=== PATIENT | male | born 1990 | race American Indian/Alaskan Native ===

== ENCOUNTER 2023-03-28 09:23 | Emergency (ER) | payer OTHER ==
[~2023-03-28] VITALS: Ht 180.3 cm; Wt 143.8 kg
--- OUTSIDE RECORDS SUMMARY | ~2023-03-28 | XMS | Continuity of Care Document ---
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 | (no reaction) | (no severity) | | [facility] | | | + + + + + + Encounters No information. Functional Status No information. Immunizations No information. Medications + + + + | date | description | facility | + + + + | 2023-03-26 00:00 | Nirmatrelvir/Ritonavir | [facility] | + + + + Problems + + + + | date | description | facility | + + + + | 2023-03-26 00:00 | Infection due to severe | [facility] | | | acute respiratory syndrome | | | | coronavirus 2 (SARS-CoV-2) | | + + + + | 2023-03-26 17:48 | OTHER SPECIFIED DISORDERS | [facility] | | | OF NOSE AND NASAL SINUSES | | + + + + | 2023-03-26 17:48 | COVID-19 | [facility] | + + + + | 2023-03-26 17:48 | OTHER NONMEDICINAL | [facility] | | | SUBSTANCE ALLERGY STATUS | | + + + + Procedures No information. Results/Labs +--------+--------+ +---------+--------+---------+ | test | date | facility | value | unit | notes | +--------+--------+ +---------+--------+---------+ + + | Result panel 1 | + + + + + + + + + | | 2023-03-26 | [facility] | POSITIVE | (missing) | (missing) | | (unavailable | 19:30:07 [facility] | | | | + + + + + + + + + | Result panel 2 | + + + + + + + + + | | 2023-03-26 | [facility] | NEGATIVE | (missing) | (missing) | | (unavailable | 19:30:07 [facility] | | | | + + + + + + + + + | Result panel 3 | + + + + + + + + + | | 2023-03-26 | [facility] | NEGATIVE | (missing) | (missing) | | (unavailable | 19:30:07 [facility] | | | | + + + + + + + + + | Result panel 4 | + + + + + + + + + | | 2023-03-26 | [facility] | NEGATIVE | (missing) | (missing) | | (unavailable | 19:30:07 [facility] | | | | + + + + + + + Social History + + + + | date | description | facility | + + + + | 2023-03-26 00:00 | Unknown if ever smoked | [facility] | + + + + Vital Signs + + + +---------+ | date | measurement | value | units | + + + +---------+ | 2023-03-26 00:00 | BMI | 44.2 | kg/m2 | + + + +---------+ | 2023-03-26 00:00 | BP_diastolic | 96 | mmHg | + + + +---------+ | 2023-03-26 00:00 | BP_systolic | 147 | mmHg | + + + +---------+ | 2023-03-26 00:00 | heart_rate | 111 | /min | + + + +---------+ | 2023-03-26 00:00 | height_metric | 180.34 | cm | + + + +---------+ | 2023-03-26 00:00 | height_standard | 71 | in | + + + +---------+ | 2023-03-26 00:00 | o2_saturation | 98 | % | + + + +---------+ | 2023-03-26 00:00 | respiration_rate | 16 | /min | + + + +---------+ | 2023-03-26 00:00 | temperature_metric | 36.94 | C | | | | | | + + + +---------+ | 2023-03-26 00:00 | | 98.5 | F | | | temperature_standar | | | | | d | | | + + + +---------+ | 2023-03-26 00:00 | weight_metric | 143.79 | kg | + + + +---------+ | 2023-03-26 00:00 | weight_standard | 317 | lb | + + + +---------+"
--- OUTSIDE RECORDS SUMMARY | ~2023-03-28 | XMS | Continuity of Care Document ---
Demographics + + + | Address | [address] | | | [place] [address] | + + + | Preferred Language | Unknown | + + + | Marital Status | Never | + + + | Oriental Orthodox Affiliation | Unknown | + + + | Race | or | + + + | Ethnic Group | Not or | + + + Author + + + | Author | [facility] | + + + | Organization | [facility] | + + + | Address | [address] [place] [address] | | | [place] [address] | + + + | Phone | | + + + Care Team Providers + + + + | Care Roll On Man Name | Role | Phone | + [...] + | 2023-03-26 00:00 | Nirmatrelvir/Ritonavir | [facility] | + + + + Problems + + + + | date | description | facility | + + + + | 2023-03-26 00:00 | Infection due to severe | [facility] | | | acute respiratory syndrome [...] | Unknown if ever smoked | [facility] | + + + + Vital Signs [...]
[~2023-03-28 09:23] MED LIST: PAXLOVID 300-11 EACH PO
--- OUTSIDE RECORDS SUMMARY | 2023-03-28 09:31 | XMS ---
PreManage Notification: RENETTA VARMA Security Icer Air Conditioning Events No recent Security Events currently on file CRITERIA MET - [facility] - 2 Visits in 30 Days CARE PROVIDERS -Maddy- Dentist: Wine Sales Representative [facility] PHONE: [phone] Edna has no Care Guidelines for this patient. EShakir VISIT COUNT ([address] 2 [facility] TOTAL 2 NOTE: Visits indicate total known visits. ED/UCC VISIT TRACKING (12 MO.) 03/28/2023 09:[address] [facility] TYPE: Emergency COMPLAINT: - L SIDE PAIN, TOP LUNGS PAIN 03/26/2023 17:[address] [facility] TYPE: Emergency COMPLAINT: - COLD SYMPTOMS DIAGNOSES: - COVID-19 - Other nonmedicinal substance allergy status - Other specified disorders of nose and nasal sinuses INPATIENT VISIT TRACKING (12 MO.) No inpatient visits to display in this time frame [id number]
[2023-03-28 10:33] VITALS: BP 148/98
== END 2023-03-28 10:34 | disposition home or self-care (01) ==
LOC: ED 09:23
DX: U07.1 COVID-19 (principal); Z91.048 Other nonmedicinal substance allergy status
CPT/HCPCS: 71045; 99283-25

== ENCOUNTER 2024-03-22 07:26 | Emergency (ER) | payer OTHER ==
[~2024-03-22] VITALS: Ht 180.3 cm; Wt 135.9 kg
[2024-03-22 08:37] VITALS: BP 150/96
== END 2024-03-22 08:38 | disposition home or self-care (01) ==
LOC: ED 07:26
DX: J06.9 Acute upper respiratory infection, unspecified (principal); Z91.048 Other nonmedicinal substance allergy status
CPT/HCPCS: 87651; 99283; U0002

== ENCOUNTER 2024-07-27 15:46 | Emergency (ER) | payer OTHER ==
[~2024-07-27] VITALS: Ht 180.3 cm; Wt 134.3 kg
[2024-07-27] MEDS ORDERED: AMOX TR-K CLV1 EAC1 PO (19:14)
[2024-07-27] MEDS ORDERED: AMOXICILLIN/CLAVULANATE K 875 MG HOME.PACK PO ONE (19:15)
[2024-07-27] MEDS ORDERED: DIPHTH,PERTUSS(ACELL),TET VAC 0.5 ML SYRINGE IM ONE (19:15)
[2024-07-27 19:48] VITALS: BP 144/97
== END 2024-07-27 19:51 | disposition home or self-care (01) ==
LOC: ED 15:46
DX: S51.852A Open bite of left forearm, initial encounter (principal); Z91.09 Other allergy status, other than to drugs and biological substances; Z23 Encounter for immunization; W54.0XXA Bitten by dog, initial encounter
CPT/HCPCS: 90471; 90715; 99283-25

== ENCOUNTER 2024-09-07 04:44 | Emergency (ER) | payer OTHER ==
[~2024-09-07] VITALS: Ht 180.3 cm; Wt 134.3 kg
[~2024-09-07 04:44] MED LIST changes: +AMOX TR-K CLV1 EAC1 PO
[2024-09-07 04:56] LABS: EOSINOPHILS 3.3 % (0-6); HEMATOCRIT 43.8 % (35.0-50.0); HEMOGLOBIN 14.8 g/dL (12.0-18.0); LYMPHOCYTES 29.4 % (24-44); MCH 27.9 (27-36); MCHC 33.7 g/dl (30-36); MCV 82.7 fl (81-99); MONOCYTES 7.6 % (0-12); NEUTROPHILS 58.7 % (39-80); PLATELET COUNT 431 K/uL (140-440); RDW 15.8 (10.5-15.0)
[2024-09-07] MEDS ORDERED: LORazepam 2 MG/ML VIAL IV ONE (05:00)
[2024-09-07 05:06] LABS: PARTIAL THROMBOPLASTIN TIME 27.9 Sec (22.9-41.3)
[2024-09-07 05:07] LABS: INR 1.02 (0.80-1.30); PROTIME 13.3 Sec (11.2-14.2)
[2024-09-07 05:18] LABS: ALBUMIN 4.3 g/dL (3.4-5.0); ALBUMIN/GLOBULIN RATIO 1.08 (1.1-2.4); ANION GAP 17.4 (7-21); BILIRUBIN, TOTAL 0.5 mg/dL (0.2-1.0); BUN/CREATININE RATIO 22.1 (6.0-28.6); CALCIUM 9.2 mg/dL (8.5-10.1); CREATININE, SERUM 0.95 mg/dL (0.70-1.30); POTASSIUM 3.4 mmol/L (3.5-5.1); PROTEIN, TOTAL 8.3 g/dL (6.4-8.2)
[2024-09-07] MEDS ORDERED: CYCLOBENZAPRINE10 MG PO (06:25)
[2024-09-07] MEDS ORDERED: CYCLOBENZAPRINE HCL 10 MG HOME.PACK PO ONE (07:00)
[2024-09-07 07:09] VITALS: BP 141/97
--- NOTE | 2024-09-07 17:43 | EKG ---
[facility] [address] [facility] [address] [facility] [place], [place] [address] Signed Normal sinus rhythm Normal ECG No previous ECGs available Confirmed by Cassius Billingsley MD ([id number]) on 09/07/2024 5:43:26 PM Electronically Signed By: CASSIUS BILLINGSLEY MD 09/07/24 1743 PATIENT NAME: RENETTA VARMA Manish BRADY Electrocardiogram DATE OF : 86 PHYSICIAN: CASSIUS BILLINGSLEY MD REPORT #: [id number] REPORT IS CONFIDENTIAL AND NOT TO BE RELEASED WITHOUT AUTHORIZATION
== END 2024-09-07 07:14 | disposition home or self-care (01) ==
LOC: ED 04:44
PROVIDERS: Family Medicine
DX: R07.89 Other chest pain (principal); J45.909 Unspecified asthma, uncomplicated; Z91.048 Other nonmedicinal substance allergy status
CPT/HCPCS: 36415; 71045; 80053; 83735; 84484; 85025; 85610; 85730; 93005; 93010; 96374; 99285-25; J2060

== ENCOUNTER 2025-02-26 21:52 | Emergency (ER) | payer OTHER ==
[~2025-02-26] VITALS: Ht 180.3 cm; Wt 137.2 kg
[~2025-02-26 21:52] MED LIST changes: +CYCLOBENZAPRINE10 MG PO
[2025-02-26] MEDS ORDERED: FLUTICASONE PRO16 GM NAS (22:12)
[2025-02-26] MEDS ORDERED: TERBINAFINE HC250 MG PO (22:12)
[2025-02-26] MEDS ORDERED: LACTATED RINGER'S 1,000 ML IV ONE (22:30)
[2025-02-26 22:31] LABS: BASOPHILS 0.4 % (0.2-1.2); EOSINOPHILS 1.9 % (0.8-7.0); LYMPHOCYTES 9.9 % (21.8-53.1); MCH 27.4 PG (25.7-32.2); MCHC 32.9 g/dL (32.3-36.5); MCV 83.2 fL (79.0-92.2); MONOCYTES 6.0 % (5.3-12.2); NEUTROPHILS 81.4 % (34.0-67.9); RBC 5.37 M/uL (4.63-6.08)
[2025-02-26 22:41] LABS: ALT (SGPT) 36.0 U/L (14-59); AST (SGOT) 16.0 U/L (15-37); GLOMERULAR FILTRATION RATE,EST 116.0 mL/min (>60); PROTEIN, TOTAL 8.5 g/dL (6.4-8.2); UREA NITROGEN 22.0 mg/dL (7-18)
[2025-02-26 23:14] LABS: BLOOD/HGB, URINE NEGATIVE (Negative); KETONE, URINE NEGATIVE (Negative); LEUK ESTERASE, URINE NEGATIVE (negative); NITRITE, URINE NEGATIVE (negative)
[2025-02-26] MEDS ORDERED: FAMOTIDINE 20 MG/ 2 ML VIAL IV ONE (23:45)
[2025-02-26] MEDS ORDERED: KETOROLAC TROMETHAMINE 30 MG/ML VIAL IV ONE (23:45)
[2025-02-27] MEDS ORDERED: LOMOTIL TABLET1 EACH PO (00:22)
[2025-02-27] MEDS ORDERED: ONDANSETRON ODT4 MG PO (00:22)
[2025-02-27] MEDS ORDERED: ONDANSETRON 4 MG HOME.PACK SL ONE (00:30)
[2025-02-27] MEDS ORDERED: DIPHENOXYLATE/ATROPINE 1 EA TAB PO ONE (00:30)
[2025-02-27 01:05] VITALS: BP 156/91
== END 2025-02-27 01:06 | disposition home or self-care (01) ==
LOC: ED 21:52
PROVIDERS: Internal Medicine
DX: A05.9 Bacterial foodborne intoxication, unspecified (principal); J45.909 Unspecified asthma, uncomplicated; Z91.048 Other nonmedicinal substance allergy status; Z79.899 Other long term (current) drug therapy
CPT/HCPCS: 36415; 80053; 81003; 83735; 85025; 87045; 87046; 96361; 96374; 96375; 99284-25; A9270; J1790; J1885; J2405; J7121